=== PATIENT | female | born 1950 | race Caucasian/White ===

== ENCOUNTER 2018-10-17 14:16 | Inpatient (IN) ==
--- NOTE | 2018-10-17 14:45 | Diag Imaging Result Doc PS360 ---
EXAM: CHEST-2 VIEWS 10/17/2018 HISTORY: SOB TECHNIQUE: PA and lateral chest COMMENT: The inspiration is better than on 01/13/2016. There is apparent COPD. The heart size and pulmonary vascularity are within normal limits. There is some prominence of interstitial markings in the lung bases which may indicate a very mild degree of interstitial pulmonary edema. IMPRESSION: COPD. Questionable pulmonary edema. Electronically signed by Varghese Bermeo 10/17/2018 2:43 PM
[2018-10-17 14:51] LABS: BASO# 0.01 X1000 (0.0-0.2); BASO% 0.1 % (0.0-0.8); EOS# 0.02 X1000 (0.0-0.7); EOS% 0.1 % (0.0-10.0); HEMATOCRIT 43.5 % (37.0-47.0); HEMOGLOBIN 13.4 g/dL (12.0-16.0); IMM GRAN# 0.03 X1000 (0.0-0.04); IMM GRAN% 0.2 % (0.0-0.5); LYMPH# 0.56 X1000 (1.2-3.4); LYMPH% 3.5 % (20.5-51.1); MCH 30.7 PG (27-31); MCHC 30.8 g/dL (33-37); MCV 99.8 FL (81-99); MONO% 6.3 % (1.7-9.3); MPV 10.3 FL (7.4-10.4); NEUT# 14.25 X1000 (1.4-6.5); NEUT% 89.8 % (42.2-75.2); PLT 320 X1000 (130-400); RBC 4.36 XMIL (4.2-5.4); RDW 13.6 % (11.5-14.5); WBC 15.87 X1000 (4.8-10.8)
[2018-10-17 14:59] LABS: INR 0.87; PROTIME 12.6 Seconds (11.0-16.0)
[2018-10-17 15:00] LABS: PTT 26.7 Seconds (22.3-41.8)
[2018-10-17 15:26] LABS: AGAP 13; ALB/GLOB RATIO 1.7; ALBUMIN 3.5 g/dL (3.5-5.0); ALKALINE PHOSPHATASE 83 U/L (32-104); BUN 20 mg/dL (8-22); CALCIUM 9.5 mg/dL (8.8-10.2); CHLORIDE 103 mmol/L (98-107); CK PROFILE 43 U/L (24-173); COSMO 289; CREATININE 0.6 mg/dL (0.5-0.9); ESTIMATED GFR > 60; GLUCOSE 91 mg/dL (70-104); GOT 14 U/L (10-30); GPT 8 U/L (10-36); POTASSIUM 4.2 mmol/L (3.5-5.1); SODIUM 144 mmol/L (136-145); TCO2 28 mmol/L (25-35); TOTAL BILIRUBIN 0.84 mg/dL (0.20-1.00); TOTAL PROTEIN 5.6 g/dL (6.3-8.3)
[2018-10-17 17:37] LABS: ALLEN TEST NO; BE 5.5 mmoll (-3.0-3.0); BLOOD TYPE ARTERIAL; HCO3-(ACT) 29.1 mmoll (20.0-26.0); METHB 0.7 % (0.0-1.5); O2(CT) 17.6 mL/dL (15.0-23.0); O2HB 93.1 % (95.0-99.0); PO2(98.6) 67 mmHg (60-100); SAMPLE BLOOD; SAO2 95.3 % (95.0-100.0); THB 13.4 g/dL (11.5-17.4)
[2018-10-17 17:38] LABS: MODALITY CANNULA; PCO2(98.6) 51 mmHg (35-45)
[2018-10-17] MEDS ORDERED: DUONEB (A & A) INH ONE (17:46)
--- NOTE | 2018-10-17 20:11 | Diag Imaging Result Doc PS360 ---
EXAM: CT ANGIOGRAM THORAX 10/17/2018 HISTORY: dyspnea TECHNIQUE: This exam was performed using automated exposure control, adjustment of mA or kV according to patient size, and/or use of iterative reconstruction technique. COMMENT: The current examination is compared with the previous study of 02/16/2018. There is no evidence of filling defect in the pulmonary arteries. There is no evidence of aortic dissection or aneurysm. There are no abnormal fluid collections. There are bronchi in the right lower lobe which are partially opacified similar in appearance to the previous examination. There is no evidence of acute pulmonary parenchymal disease and compared to the previous examination otherwise there has been no significant change. IMPRESSION: COPD. Stable CT of the chest. Electronically signed by Varghese Bermeo 10/17/2018 8:09 PM
--- NOTE | 2018-10-17 21:22 | HISTORY AND PHYSICAL ---
CHIEF COMPLAINT: Shortness of breath. PRESENT ILLNESS: The patient is a 68-year-old white female with COPD who has been short of breath for the last 3 to 4 weeks. She has seen her regular doctor Dr. Cortés who had her on antibiotics and steroids as well as breathing treatments at home with [facility] and she just does not feeling better and she feels like she is getting worse. Came to the emergency room still short of breath. Her white count was 15,870. Her blood gas showed a pH of 7.40, pCO2 of 51, PO2 of 67 on 28% FiO2 so without oxygen probably hypoxic with this. She states that a couple months ago she started getting more short of breath and it hit her fairly suddenly and then even worse 3 to 4 weeks ago and had not had anything like this before. She says nothing seems to help. She has had home oxygen for the last 3 weeks. The patient has also been under considerable stress. She has had several family members in the last little while. She has been on antidepressants and on Xanax. PAST MEDICAL HISTORY: Includes COPD, she has had a total hysterectomy, she has had osteoarthritis, hypertension, hyperlipidemia. FAMILY HISTORY: Includes vascular disease and lung cancer. SOCIAL HISTORY: The patient smoked from age 15 until about 16 years ago and smoked 2 to 3 packs a day. 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 She has concerns about lung cancer and concerns about heart disease. She does seem uncomfortable even though blood gases are not that bad. She says she just cannot get her breath. She denies being lightheaded. REVIEW OF SYSTEMS: Neurological: Denies headaches, seizures, visual problems, hearing problems. Pulmonary: She has been very short of breath and did have a cough and that has gotten better but her breathing just has not gotten any better. Cardiovascular: Denies chest pain, heart palpitations, PND, orthopnea. GI: Denies hematochezia, hematemesis, melena, constipation, diarrhea. : Denies any difficulty with urination. Endocrine: Has no thyroid disease or diabetes by history. No pituitary problems. Psychiatric: Patient has had some anxiety and depression is on treatment for that. HOME MEDICATION: List includes albuterol and Atrovent duo nebs at home, Xanax 0.5 mg p.o. b.i.d., Celexa 20 mg daily, Meloxicam 7.5 mg daily, Singulair 10 mg daily, she has some nitroglycerin order though she tells me she has not had chest pain, pravastatin 40 mg at bedtime, prednisone she has been on tapering dose here recently. PHYSICAL EXAMINATION: The patient appears to be somewhat anxious and short of breath. She is a little tachycardic and tachypneic. VITAL SIGNS: Show blood pressure 109/62, respirations 20, pulse 113 later came down to 75, temperature 97.8 degrees Fahrenheit . HEENT: She is normocephalic. EOMS intact. PERRLA. Throat clear. Fundi not seen well due to constriction of pupils. NECK: Supple without thyromegaly, lymphadenopathy, carotid bruits. LUNGS: Have a few rales in the bases bilaterally but no wheezing at this time. HEART: Regular rate and rhythm to sinus tachycardia. ABDOMEN: Soft. Active bowel sounds. No organomegaly or tenderness. BREAST: Deferred. RECTAL: Deferred. PELVIC: Deferred . INTEGUMENT: Shows no lesions consistent with melanoma other skin cancers, lymph nodes are nonpalpable in the cervical, supraclavicular areas. NEUROLOGICAL: Intact grossly. Reflexes 1+ all. EKG has been ordered. Because of her concern about possibly pulmonary embolism or cancer that we cannot see on chest x-ray will do a CT angiogram of her chest. Her D-dimer was very low and based on that one would hope that she does not have a pulmonary embolism. She has had no swelling in her legs. She did on her chest x-ray which was essentially clear had maybe a little suggestion of pulmonary edema according to the radiologist, because of that I will go ahead and do an echocardiogram as well. Her initial troponin level was normal. EKG is pending. I will start her on some IV Solu-Medrol and breathing treatments. ADMITTING DIAGNOSIS: 1. Unremitting shortness of breath. 2. Chronic obstructive pulmonary disease exacerbation. 3. Questionable pulmonary edema on chest x-ray. cc: Mayank Telles Jr, MD
--- NOTE | 2018-10-18 01:42 | PROVIDER DOCUMENTATION ---
This chart was entered by Elaine Whitley Scribe, acting as scribe for J Luis Ramon MD. HPI-Respiratory General - General Chief Complaint: Shortness of Breath Stated Complaint: CANT BREATHE Time Seen by Provider: 10/17/18 16:29 Source: patient Allergies/Adverse Reactions: Patient Allergies Allergy/AdvReac Type Severity Reaction Status Date / Time No Known Allergies Allergy Verified 01/13/16 14:00 Home Medications: Home Medication List Medication Instructions Recorded Confirmed Last Taken Type Alprazolam [Xanax] 0.5 mg PO BID PRN PRN 01/13/16 10/17/18 01/13/16 History Citalopram [Celexa] 20 mg PO DAILY 01/13/16 10/17/18 01/12/16 History PRAVAstatin [Pravachol] 40 mg PO QHS 01/13/16 10/17/18 01/12/16 History Albuterol 2.5MG/Ipratrop 0.5MG 3 ml INH Q4H PRN PRN #0 neb 01/16/16 10/17/18 Unknown Rx [Duoneb (A & A)] Benzonatate 200 mg PO TID 10/17/18 10/17/18 Unknown History Cyclobenzaprine [Flexeril] 10 mg PO QHS 10/17/18 10/17/18 Unknown History Losartan [Cozaar] 50 mg PO DAILY 10/17/18 10/17/18 Unknown History Meloxicam [Mobic] 15 mg PO DAILY 10/17/18 10/17/18 Unknown History Mometasone/Formoterol [Dulera 100 2 puff INH BID 10/17/18 10/17/18 Unknown History Mcg/5 Mcg Inhaler] Prednisone 10 mg PO DAILY 10/17/18 10/17/18 Unknown History Tiotropium Br/Olodaterol HCl 4 gm IH 10/17/18 Unknown History [Stiolto Respimat Inhal Samaria] - History of Present Illness-Resp Nature of Presenting Problem: 68 y/o female presents to the ED with increasing SOB worsening with walking in the house and states at times she feels as if she might pass out due to this SOB. The patient has a history of COPD and is on home O2 , nebulizer treatment , and finished a 10 day course of Levaquin. The patient has not yet seen [employer]. Onset/Duration: reports: other (one month) Timing: reports: still present Context: reports: other (COPD) Episode Frequency: chronic episodes Current Respiratory Medication Therapy: Initiated see nurses note Modifying Factors: worse with: exertion Associated Symptoms: reports: shortness of breath, short of breath. denies: fever/chills, sweaty, wheezing Similar Symptoms Previously?: Yes Recently seen or treated by another doctor?: No Review of Systems - Adult - REVIEW OF SYSTEMS - ADULT Constitutional: denies: chills, fever, night sweats Eyes: reports: no symptoms reported Ears, Nose, Mouth & Throat: reports: no symptoms reported Cardiovascular: reports: no symptoms reported Respiratory: reports: shortness of breath. denies: hemoptysis, wheezing Gastrointestinal: denies: diarrhea, nausea, vomiting Genitourinary: reports: no symptoms reported Musculoskeletal: reports: no symptoms reported Integumentary: reports: no symptoms reported Neurological: reports: no symptoms reported Psychiatric: reports: no symptoms reported Endocrine: reports: no symptoms reported Hematologic/Lymphatic: reports: no symptoms reported Allergic/Immunologic: reports: no symptoms reported All Other Systems: Reviewed and Negative Past History - Adult - PAST MEDICAL HISTORY-ADULT Review of Records: reports: Old Records Reviewed, Nursing Assessment Review, Medications Reviewed Cardiovascular: reports: hyperlipidemia Respiratory: reports: COPD Psychiatric: reports: depression - PRIOR SURGERIES/PROCEDURES Surgical/Procedure History: reports: hysterectomy, breast (lumpectomy) - IMMUNIZATION STATUS Childhood Immunizations: See Nurse Assessment Flu Vaccine: See Nurse Assessment - SOCIAL HISTORY Smoking: other (former smoker) Substance Use: denies Alcohol Use Frequency: never Physical Exam-General - PHYSICAL EXAM-ADULT Initial Vital Signs Reviewed: Yes - CONSTITUTIONAL General Appearance: alert, other (on O2 2 liters) - HEAD, EARS, NOSE, MOUTH & THROAT HENMT: normocephalic/atraumatic, moist mucous membranes - NECK Neck: non-tender, full range of motion, supple - RESPIRATORY Respiratory: other (decreased breath sounds). negative: rhonchi, wheezing - CARDIOVASCULAR Cardiovascular: regular rate, rhythm, no edema - SKIN Integumentary: normal color, warm/dry. negative: diaphoresis - NEUROLOGIC Neurologic: grossly normal - PSYCHIATRIC Psych/Mental Status: oriented x 3 Progress - PLAN OF CARE/RESULTS Progress/Plan/Lab Results: Vital Signs - 8 hr 01/05/19 18:23 Pulse Rate 75 Respiratory Rate 17 O2 Sat by Pulse Oximetry 96 Laboratory Results - last 24 hr 10/17/18 10/17/18 10/17/18 14:35 14:35 14:35 WBC 15.87 H RBC 4.36 Hgb 13.4 Hct 43.5 MCV 99.8 H MCH 30.7 MCHC 30.8 L RDW Std Deviation 13.6 Plt Count 320 MPV 10.3 Immature Gran % (Auto) 0.2 Neut % (Auto) 89.8 H Lymph % (Auto) 3.5 L [place] % (Auto) 6.3 Eos % (Auto) 0.1 Baso % (Auto) 0.1 Immature Gran # (Auto) 0.03 Neut # (Auto) 14.25 H Lymph # (Auto) 0.56 L [place] # (Auto) 1.00 H Eos # (Auto) 0.02 Baso # (Auto) 0.01 PT INR PTT (Actin FS) D-Dimer, Quantitative Specimen Type Sample Site pH pCO2 pO2 HCO3 Base Excess Oxyhemoglobin ABG O2 Sat (Calculated) ABG O2 Saturation ABG Carboxyhemoglobin ABG Methemoglobin Moo Test A-a O2 Difference Total Hemoglobin Lactate Liter Flow Blood Gas Modality FiO2 % Sodium 144 Potassium 4.2 Chloride 103 Carbon Dioxide 28 Anion Gap 13 BUN 20 Creatinine 0.6 Estimated GFR/1.73 m2 > 60 BUN/Creatinine Ratio 33 Glucose 91 Calculated Osmolality 289 Calcium 9.5 Total Bilirubin 0.84 AST 14 ALT 8 L Alkaline Phosphatase 83 Creatine Kinase 43 Troponin T Gex-S-Gkxfelwzffh Pept 97 Total Protein 5.6 L Albumin 3.5 Globulin 2.1 Albumin/Globulin Ratio 1.7 10/17/18 10/17/18 10/17/18 14:35 14:35 14:35 WBC RBC Hgb Hct MCV MCH MCHC RDW Std Deviation Plt Count MPV Immature Gran % (Auto) Neut % (Auto) Lymph % (Auto) [place] % (Auto) Eos % (Auto) Baso % (Auto) Immature Gran # (Auto) Neut # (Auto) Lymph # (Auto) [place] # (Auto) Eos # (Auto) Baso # (Auto) PT 12.6 INR 0.87 PTT (Actin FS) 26.7 D-Dimer, Quantitative < 0.27 Specimen Type Sample Site pH pCO2 pO2 HCO3 Base Excess Oxyhemoglobin ABG O2 Sat (Calculated) ABG O2 Saturation ABG Carboxyhemoglobin ABG Methemoglobin Moo Test A-a O2 Difference Total Hemoglobin Lactate Liter Flow Blood Gas Modality FiO2 % Sodium Potassium Chloride Carbon Dioxide Anion Gap BUN Creatinine Estimated GFR/1.73 m2 BUN/Creatinine Ratio Glucose Calculated Osmolality Calcium Total Bilirubin AST ALT Alkaline Phosphatase Creatine Kinase Troponin T < 0.010 Vtm-U-Frmujipxtyr Pept Total Protein Albumin Globulin Albumin/Globulin Ratio 10/17/18 17:25 WBC RBC Hgb Hct MCV MCH MCHC RDW Std Deviation Plt Count MPV Immature Gran % (Auto) Neut % (Auto) Lymph % (Auto) [place] % (Auto) Eos % (Auto) Baso % (Auto) Immature Gran # (Auto) Neut # (Auto) Lymph # (Auto) [place] # (Auto) Eos # (Auto) Baso # (Auto) PT INR PTT (Actin FS) D-Dimer, Quantitative Specimen Type ARTERIAL Sample Site R BRACHIAL pH 7.40 pCO2 51 H* pO2 67 HCO3 29.1 H Base Excess 5.5 H Oxyhemoglobin 93.1 L ABG O2 Sat (Calculated) 17.6 ABG O2 Saturation 95.3 ABG Carboxyhemoglobin 1.60 ABG Methemoglobin 0.7 Moo Test NO A-a O2 Difference 69.0 Total Hemoglobin 13.4 Lactate 1.00 Liter Flow 2.0 Blood Gas Modality CANNULA FiO2 % 28.0 Sodium Potassium Chloride Carbon Dioxide Anion Gap BUN Creatinine Estimated GFR/1.73 m2 BUN/Creatinine Ratio Glucose Calculated Osmolality Calcium Total Bilirubin AST ALT Alkaline Phosphatase Creatine Kinase Troponin T Acp-Y-Zdzhvkwhwjv Pept Total Protein Albumin Globulin Albumin/Globulin Ratio Orders Category Date Time Status Admit - [facility] Routine AdmDCTranf 10/17/18 18:10 Active Call Admitting on Arrival AT ADMISSION Care 10/17/18 18:10 Active Cardiac Monitoring DIRECTED Care 10/17/18 14:28 Active Oxygen Therapy- ED Nursing DIRECTED Care 10/17/18 14:28 Active Saline Loc NOW Care 10/17/18 14:28 Active Vital Signs Order ROUTINE Care 10/17/18 18:10 Active Z-Document. for Tele Applied ORDERED Care 10/17/18 18:11 Active CHEST-2 VIEWS [RAD] Stat Exams 10/17/18 14:[address] ANGIOGRAM THORAX [CT] Stat Exams 10/17/18 18:37 Completed ABG [RESP] Routine Lab 10/17/18 17:25 Completed CBC WITH ELECTRONIC DIFF [HEME] Stat Lab 10/17/18 14:35 Completed CK PROFILE [SP CHEM] Stat Lab 10/17/18 14:35 Completed COMPREHENSIVE METABOLIC PANEL [CHEM] Stat Lab 10/17/18 14:35 Completed D-DIMER [COAG] Stat Lab 10/17/18 14:35 Completed PRO B-NATRIURETIC PEPTIDE Stat Lab 10/17/18 14:35 Completed PROTIME WITH INR [COAG] Stat Lab 10/17/18 14:35 Completed PTT [COAG] Stat Lab 10/17/18 14:35 Completed TROPONIN T Stat Lab 10/17/18 14:35 Completed Albuterol 2.5MG/Ipratrop 0.5MG [Duoneb (A & A)] Med 10/17/18 17:46 Discontinued 3 ml INH NOW ONE Aerosol Treatments Routine Oth 10/17/18 17:46 Completed Aerosol Treatments Stat Oth 10/17/18 17:46 Completed CP/SOB/Palp >45 yrs of Age Stat Oth 10/17/18 14:28 Ordered Oxygen Device Routine Oth 10/17/18 18:11 Completed Telemetry [OM.EQ] Routine Oth 10/17/18 18:10 Active EKG [EKG] Stat Ther 10/17/18 14:28 Ordered Transfer/Admit Order [TRANSFER] Routine Transfer 10/17/18 18:11 Ordered Result Diagrams: 10/17/18 14:35 10/17/18 14:35 - EKG 1 Time of EKG reading by physician:: 14:32 EKG Read and Signed by:: [place] Rate: 111 Rhythm: sinus tachycardia with occasional premature venticular complexes [place]: normal ST Wave: normal - XRAY 1 XRAY Study: Chest Impression: Abnormal (EXAM: CHEST-2 VIEWS 10/17/2018 HISTORY: SOB TECHNIQUE: PA and lateral chest COMMENT: The inspiration is better than on 01/13/2016. There is apparent COPD. The heart size and pulmonary vascularity are within normal limits. There is some prominence of interstitial markings in the lung bases which may indicate a very mild degree of interstitial pulmonary edema. IMPRESSION: COPD. Questionable pulmonary edema. Electronically signed by Varghese Bermeo 10/17/2018 2:43 PM) - CONSULTS/PCP/HOSPITALIST Notification #1 *Consult/PCP/Hospitalist*: Dr. Telles for Dr. [place] Cortés Time Discussed: 17:49 Reason/Comments: elevated white count, worsening SOB Consult Disposition: Admit Departure - Departure Date of Disposition Decision: 10/17/18 Time of Disposition Decision: 18:13 DIAGNOSIS: Acute and chronic respiratory failure Qualifiers: Respiratory failure complication: hypercapnia Qualified Code(s): J96.22 - Acute and chronic respiratory failure with hypercapnia Disposition: HOME 01 Certified Medical Emergency: Emergent Condition: Good - Critical Care Note This patient required my direct & personal management of CC.: No Attestation - Physician/ KATERINE Attestation Patient care was provided by Advanced Practice Provider:: No The physician spent face to face time with patient:: Yes Advanced Practice Provider documentation review:: Supervising physician onsite and consulted in the evaluation and care of this patient. The physician did have a face to face encounter with the patient. This chart was documented by the indicated scribe, (Elaine Whitley Scribe) and accurately reflects the services I performed and decisions made by me, J Luis Ramon MD, as attested by the provider's signature.
[2018-10-18] MEDS: DUONEB (A & A) INH SCH ×4 (04:00→22:30)
[2018-10-18] MEDS ORDERED: TYLENOL PO PRN (04:07)
[2018-10-18] MEDS ORDERED: SOLU-MEDROL IV ONE (04:07)
--- NOTE | 2018-10-18 07:52 | Diag Imaging Result Doc PS360 ---
EXAM: CHEST-1 VIEW 10/18/2018 HISTORY: SEPSIS PROTOCOL TECHNIQUE: AP upright portable at 0745 COMMENT: There may be a hiatal hernia. Considering differences in technique and inspiration there has been no significant change in the appearance the chest since 10/17/2018. IMPRESSION: Stable chest. Electronically signed by Varghese Bermeo 10/18/2018 7:50 AM
--- NOTE | 2018-10-18 12:31 | PROGRESS NOTE ---
DATE: 10/18/2018 SUBJECTIVE: The patient says she feels about the same. She is not breathing real fast, respirations around [address] scan of the chest just showed COPD and did not show any pulmonary emboli or masses. OBJECTIVE: Vital signs: Blood pressure 139/99, respirations 18, pulse 96, temp 97.9 degrees Fahrenheit, oxygen saturation 96% on 2 L. The patient is hungry. We will go ahead and feed her. HEENT: She is normocephalic. EOMS intact. PERRLA. Throat clear. Lungs: Wheezes in the bases bilaterally. Heart: Regular rate and rhythm without murmurs, gallops, friction rubs. Abdomen: Soft. Active bowel sounds. No organomegaly or tenderness. Neurological: Intact grossly. The patient does appear a little anxious. ASSESSMENT: COPD exacerbation. PLAN: We will continue IV steroids. We will get her back on her other inhalers. Echocardiogram has been ordered. On initial chest x-ray, there was some question about some pulmonary edema. cc: Mayank Telles Jr, MD
[2018-10-18] MEDS: LOVENOX SUBQ SCH (13:29)
[2018-10-18] MEDS: COZAAR PO SCH (13:46)
[2018-10-18] MEDS: CELEXA PO SCH (13:46)
[2018-10-18] MEDS: XANAX PO SCH ×2 (13:50→21:33)
[2018-10-18] MEDS: SOLU-MEDROL IV SCH ×2 (13:51→21:33)
[2018-10-18] MEDS: TESSALON PO SCH ×3 (13:51→21:33)
[2018-10-18] MEDS: DULERA 100 MCG/5 MCG INHALER INH SCH ×2 (15:44→19:30)
[2018-10-18 20:30] LABS: HEMATOCRIT 42.4 % (37.0-47.0); HEMOGLOBIN 12.7 g/dL (12.0-16.0); IMM GRAN# 0.03 X1000 (0.0-0.04); IMM GRAN% 0.3 % (0.0-0.5); LYMPH# 0.35 X1000 (1.2-3.4); LYMPH% 3.3 % (20.5-51.1); MCH 30.2 PG (27-31); MCV 100.7 FL (81-99); MONO# 0.16 X1000 (0.11-0.59); MONO% 1.5 % (1.7-9.3); MPV 10.1 FL (7.4-10.4); NEUT# 9.96 X1000 (1.4-6.5); NEUT% 94.9 % (42.2-75.2); PLT 293 X1000 (130-400); RBC 4.21 XMIL (4.2-5.4); RDW 13.6 % (11.5-14.5)
[2018-10-18 20:35] LABS: INR 0.87; PROTIME 12.5 Seconds (11.0-16.0)
[2018-10-18 20:36] LABS: PTT 25.3 Seconds (22.3-41.8)
[2018-10-18 21:02] LABS: ALB/GLOB RATIO 1.5; ALBUMIN 3.4 g/dL (3.5-5.0); POTASSIUM 4.5 mmol/L (3.5-5.1); TOTAL BILIRUBIN 0.62 mg/dL (0.20-1.00); TOTAL PROTEIN 5.6 g/dL (6.3-8.3)
[2018-10-18 21:12] LABS: BANDS 1 % (0-1); LYMPHS 4 % (21-51); MONO 1 % (1-9); SEGS 94 % (42-75)
[2018-10-18] MEDS: PRAVACHOL PO SCH (21:33)
[2018-10-19] MEDS: DUONEB (A & A) INH SCH ×4 (03:15→21:20)
[2018-10-19] MEDS: SOLU-MEDROL IV SCH ×3 (06:19→20:57)
--- NOTE | 2018-10-19 07:27 | EKG Report ---
Test Performed on : 10/17/2018 2:32:04 PM Test Reason : SOB Blood Pressure : / mmHG Vent. Rate : 111 BPM Atrial Rate : 111 BPM P-R Int : 118 ms QRS Dur : 082 ms QT Int : 326 ms P-R-T Axes : 083 037 073 degrees QTc Int : 443 ms Sinus tachycardia. with occasional premature ventricular complexes. Otherwise normal ECG When compared with ECG of 13-JAN-2016 13:33, premature ventricular complexes. are now present T wave inversion no longer evident in Inferior leads Unconfirmed Result
[2018-10-19 07:28] LABS: HEMOGLOBIN 13.3 g/dL (12.0-16.0); IMM GRAN# 0.03 X1000 (0.0-0.04); IMM GRAN% 0.3 % (0.0-0.5); LYMPH# 0.47 X1000 (1.2-3.4); LYMPH% 5.1 % (20.5-51.1); MCH 30.5 PG (27-31); MCHC 30.2 g/dL (33-37); MCV 100.9 FL (81-99); MONO# 0.33 X1000 (0.11-0.59); MONO% 3.6 % (1.7-9.3); MPV 10.4 FL (7.4-10.4); NEUT# 8.34 X1000 (1.4-6.5); PLT 281 X1000 (130-400); RBC 4.36 XMIL (4.2-5.4); RDW 13.6 % (11.5-14.5); WBC 9.17 X1000 (4.8-10.8)
[2018-10-19 07:35] LABS: LYMPHS 6 % (21-51); MONO 6 % (1-9); SEGS 88 % (42-75)
[2018-10-19 08:00] LABS: AGAP 11; BUN 17 mg/dL (8-22); CALCIUM 9.4 mg/dL (8.8-10.2); CHLORIDE 103 mmol/L (98-107); COSMO 291; CREATININE 0.7 mg/dL (0.5-0.9); ESTIMATED GFR > 60; GLUCOSE 152 mg/dL (70-104); POTASSIUM 4.2 mmol/L (3.5-5.1); SODIUM 144 mmol/L (136-145); TCO2 30 mmol/L (25-35)
[2018-10-19] MEDS: CELEXA PO SCH (09:45)
[2018-10-19] MEDS: XANAX PO SCH ×2 (09:45→20:58)
[2018-10-19] MEDS: TESSALON PO SCH ×3 (09:45→20:58)
[2018-10-19] MEDS: LOVENOX SUBQ SCH (09:45)
[2018-10-19] MEDS: COZAAR PO SCH (09:45)
[2018-10-19] MEDS ORDERED: BENADRYL PO PRN (10:40)
[2018-10-19] MEDS: DULERA 100 MCG/5 MCG INHALER INH SCH ×2 (11:22→21:20)
--- NOTE | 2018-10-19 14:02 | ECHO REPORT ---
ORDER DATE: 10/18/2018 PROCEDURE: Echocardiogram. MEASUREMENTS: Left ventricular end-diastolic diameter 4.6. End-systolic diameter 3.3, septal thickness 0.8, posterior wall thickness 0.7, aortic root 3.3, left atrium 3.3. SUMMARY: 1. Technically difficult study due to limited acoustic window quality. 2. Aortic valve without evidence of structural abnormality. Peak gradient across that aortic valve is 11 mmHg. Mitral and tricuspid valves are without evidence of structural abnormality, while pulmonic valve is not well demonstrated. There is trace mitral regurgitation and very mild tricuspid regurgitation. The aortic root is normal in size. 3. Normal left ventricular dimensions demonstrated. Estimated left ventricular ejection fraction appears to be at least 60%. No regional wall abnormalities can be appreciated. Doppler suggests grade 1 left ventricular diastolic dysfunction. Left atrium, right atrium, and right ventricle are normal size with normal right ventricular systolic function. 4. No pericardial effusion. 5. Appearance of inferior vena cava suggests normal central venous pressure. CONCLUSIONS: 1. Technically difficult study. 2. Very mild tricuspid regurgitation. 3. Normal left ventricular systolic function without wall motion abnormality evident. 4. Grade 1 left ventricular diastolic dysfunction suggested. cc: MD Mayank White Jr, MD
--- NOTE | 2018-10-19 18:20 | PROGRESS NOTE ---
DATE: 10/19/2018 VITAL SIGNS: Stable with temperature 97.7 degrees, heart rate 109, respirations 16, blood pressure 120/61, O2 saturation on 2 liters nasal oxygen 95%. SUBJECTIVE: The patient is a 68-year-old white female with COPD who had worsening and presented to the emergency room. Chest x-ray is stable with possible hiatal hernia. Chest CT showed no significant change since study of 02/16/2018. Impression was COPD. Echocardiogram showed mild tricuspid regurgitation and normal left ventricular systolic function. There was mild left ventricular diastolic dysfunction. The patient states that she has improved a little, but when she gets up to go to the bathroom, she becomes very winded and tachypneic. She is receiving intravenous steroids with Solu-Medrol and aerosol treatments with albuterol and Atrovent. White blood count has decreased from 16,000 to 9000 over the past couple of days. Hematocrit is stable at 44. PLAN: Add budesonide inhalation b.i.d., do pulmonary function studies, and consult Dr. Stuart for additional help in management. cc: MD Mayank De La Paz Jr, MD
[2018-10-19] MEDS: PRAVACHOL PO SCH (20:58)
[2018-10-19] MEDS: PULMICORT INH SCH (21:20)
[2018-10-20] MEDS: DUONEB (A & A) INH SCH ×4 (03:40→22:00)
[2018-10-20] MEDS: SOLU-MEDROL IV SCH (06:07)
[2018-10-20 07:37] LABS: HEMATOCRIT 43.6 % (37.0-47.0); HEMOGLOBIN 13.1 g/dL (12.0-16.0); IMM GRAN# 0.04 X1000 (0.0-0.04); IMM GRAN% 0.2 % (0.0-0.5); LYMPH# 0.47 X1000 (1.2-3.4); LYMPH% 2.5 % (20.5-51.1); MCH 30.2 PG (27-31); MCV 100.5 FL (81-99); MONO# 0.79 X1000 (0.11-0.59); MONO% 4.1 % (1.7-9.3); MPV 10.2 FL (7.4-10.4); NEUT# 17.85 X1000 (1.4-6.5); NEUT% 93.2 % (42.2-75.2); PLT 318 X1000 (130-400); RBC 4.34 XMIL (4.2-5.4); RDW 13.7 % (11.5-14.5); WBC 19.15 X1000 (4.8-10.8)
[2018-10-20 08:00] LABS: BANDS 2 % (0-1); LYMPHS 2 % (21-51); MONO 2 % (1-9); SEGS 94 % (42-75)
[2018-10-20 08:07] LABS: AGAP 9; BUN 20 mg/dL (8-22); CALCIUM 9.8 mg/dL (8.8-10.2); CHLORIDE 101 mmol/L (98-107); COSMO 284; CREATININE 0.6 mg/dL (0.5-0.9); ESTIMATED GFR > 60; GLUCOSE 139 mg/dL (70-104); POTASSIUM 4.4 mmol/L (3.5-5.1); SODIUM 140 mmol/L (136-145); TCO2 30 mmol/L (25-35)
--- NOTE | 2018-10-20 08:18 | PROGRESS NOTE ---
DATE: 10/20/2018 VITAL SIGNS: Temperature 98.1 degrees, heart rate 100, respirations 16, blood pressure 113/61, O2 saturation on 2 liters nasal oxygen of 96%. SUBJECTIVE: The patient feels better. She has been afebrile. OBJECTIVE: White blood count is increased, probably related to IV steroids, at 19,000. Hematocrit is 43.6. Plasma lactate is 2.2. Chest is clear. Abdomen is soft. PLAN: Pulmonary function studies and pulmonary consult. cc: MD Mayank De La Paz Jr, MD
[2018-10-20] MEDS: PULMICORT INH SCH ×2 (09:50→22:00)
[2018-10-20] MEDS: DULERA 100 MCG/5 MCG INHALER INH SCH ×2 (09:51→20:00)
[2018-10-20] MEDS ORDERED: DUONEB (A & A) ONE (09:58)
[2018-10-20] MEDS: CELEXA PO SCH (10:12)
[2018-10-20] MEDS: TESSALON PO SCH ×3 (10:12→20:48)
[2018-10-20] MEDS: COZAAR PO SCH (10:13)
[2018-10-20] MEDS: LOVENOX SUBQ SCH (10:13)
[2018-10-20] MEDS: XANAX PO SCH ×2 (10:13→20:48)
[2018-10-20] MEDS: PREDNISONE PO SCH ×2 (10:17→20:48)
--- NOTE | 2018-10-20 13:52 | Diag Imaging Result Doc PS360 ---
EXAM: SINUSES 10/20/2018 HISTORY: sinus drainage TECHNIQUE: Sinus series 3 views COMMENT: The paranasal sinuses appear to be clear. There is no evidence of acute bony disease. IMPRESSION: No acute disease. Electronically signed by Varghese Bermeo 10/20/2018 1:50 PM
--- NOTE | 2018-10-20 13:59 | PULMONOLOGY CONSULTATION ---
DATE: 10/20/2018 REQUESTING PHYSICIAN: Dr. West Cortés. REASON FOR CONSULTATION: COPD with dyspnea. HISTORY OF PRESENT ILLNESS: Ms. Paz is a 68-year-old white female, with a 60 pack year history for tobacco, long history of nonsmoking,who was diagnosed with COPD approximately 16 years ago by her report. She reports she was on oxygen transiently at that time but came off oxygen but she is not clear about the time frame. The patient was placed on intermittent oxygen and nocturnal oxygen approximately 4 years ago. Approximately 5 years ago she was evaluated by Dr. John Cartwright in [place] and has used nebulizers since that time. She has not had a recent pulmonary followup. 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 Approximately 4 weeks ago, she developed an upper respiratory infection associated with cough, sputum production, and some sinus drainage. She reports her oxygen requirements significantly increased after that time, and she has not yet returned to her baseline. The patient presented to the emergency room on 10/17/2018 with shortness of breath, and she underwent a CT scan of the thorax which was compared to one performed 02/16/2018. She has some increased mucus in the airways, evidence of emphysema, but no evidence of pulmonary emboli. The patient did undergo pulmonary function studies earlier today which revealed severe obstruction with an FEV 1 of 0.57 L or 24% of predicted. She has had marginal improvement during this hospitalization. PAST MEDICAL HISTORY: Problem List: 1. COPD with hypoxemic respiratory failure, as per above. 2. Hypertension. 3. Dyslipidemia. 4. Osteoarthritis. 5. Status post hysterectomy. SOCIAL HISTORY: Prior tobacco use per above. Occasional alcohol use. 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 FAMILY HISTORY: Positive for breast cancer, lung cancer, and vascular disease. REVIEW OF SYSTEMS: Primarily notable for increased fatigue, increased shortness of breath, cough. PHYSICAL EXAMINATION: General: Examination reveals a well-developed, well-nourished, white female, resting comfortably and in no distress. Vital Signs: Blood pressure 129/62, heart rate 114, respiratory rate 20, oxygen saturation 96% on 2 L per nasal cannula. HEENT: Pupils are equal and reactive. Oropharynx is clear. Neck: Supple. Chest: Reveals occasional rhonchi bilaterally with faint wheezing on forced exhalation. Cardiac Exam: S1-S2 increased rate. Abdomen: Soft. Extremities: Without edema. LABORATORIES: Echocardiogram was performed yesterday which revealed normal LV function. No evidence of significant pulmonary hypertension. No evidence of significant cardiac dysfunction. Pulmonary function studies today as per above. Arterial blood gas reveals a pH of 7.40, pCO2 of 51, PO2 of 67 on 2 L per nasal cannula. IMPRESSION: 68-year-old with chronic hypercapnic respiratory failure, [id number] hypoxemic respiratory failure, chronic obstructive pulmonary disease exacerbation, increased dyspnea. The patient does have occasional rhonchi on examination. She has received broad-spectrum antibiotic prior to this admission (Levaquin). She continues to have a rattle. She did have some sinus issues early in the course of her illness. RECOMMENDATIONS: 1. Check sinus series to evaluate for sinusitis. This would require a longer course of antibiotics. 2. Staph coverage. We will initiate doxycycline, 1 tablet twice a day. 3. Continue steroids as you are doing and wean as tolerated. 4. Add an anticholinergic medication to her regimen. 5. Anticipate pulmonary rehabilitation after she has improved from current exacerbation. cc: MD Mayank Ricci Jr, MD
[2018-10-20] MEDS: DOXYCYCLINE PO SCH ×2 (14:35→20:48)
[2018-10-20] MEDS: SPIRIVA INH SCH (15:32)
[2018-10-20] MEDS: PRAVACHOL PO SCH (20:48)
[2018-10-21] MEDS: DUONEB (A & A) INH SCH ×3 (02:30→15:14)
[2018-10-21 08:04] LABS: EOS# 0.07 X1000 (0.0-0.7); EOS% 0.4 % (0.0-10.0); HEMATOCRIT 43.8 % (37.0-47.0); HEMOGLOBIN 13.2 g/dL (12.0-16.0); IMM GRAN# 0.05 X1000 (0.0-0.04); IMM GRAN% 0.3 % (0.0-0.5); LYMPH% 2.3 % (20.5-51.1); MCH 30.7 PG (27-31); MCHC 30.1 g/dL (33-37); MCV 101.9 FL (81-99); MONO# 0.98 X1000 (0.11-0.59); MONO% 5.6 % (1.7-9.3); MPV 10.1 FL (7.4-10.4); NEUT# 15.89 X1000 (1.4-6.5); NEUT% 91.4 % (42.2-75.2); PLT 305 X1000 (130-400); RDW 13.7 % (11.5-14.5); WBC 17.39 X1000 (4.8-10.8)
[2018-10-21 08:14] LABS: AGAP 8; BUN 22 mg/dL (8-22); CALCIUM 10.1 mg/dL (8.8-10.2); CHLORIDE 102 mmol/L (98-107); COSMO 288; CREATININE 0.6 mg/dL (0.5-0.9); ESTIMATED GFR > 60; GLUCOSE 130 mg/dL (70-104); POTASSIUM 5.2 mmol/L (3.5-5.1); SODIUM 142 mmol/L (136-145); TCO2 32 mmol/L (25-35)
[2018-10-21] MEDS: COZAAR PO SCH (08:41)
[2018-10-21] MEDS: PREDNISONE PO SCH (08:41)
[2018-10-21] MEDS: LOVENOX SUBQ SCH (08:41)
[2018-10-21] MEDS: DOXYCYCLINE PO SCH (08:41)
[2018-10-21] MEDS: TESSALON PO SCH ×2 (08:41→14:25)
[2018-10-21] MEDS: CELEXA PO SCH (08:41)
[2018-10-21] MEDS: XANAX PO SCH (08:43)
--- NOTE | 2018-10-21 09:16 | PROGRESS NOTE ---
DATE: 10/21/2018 VITAL SIGNS: Temperature 97.9 degrees, heart rate 101, respirations 20, blood pressure 126/70, O2 saturation on 2 liters nasal oxygen was 99%. LABORATORY: Sodium 142, potassium 5.2, glucose 130, BUN 22, creatinine 0.6, serum lactate 3.3. Hemoglobin 13.2, hematocrit 43.8, white blood count 17,400. OBJECTIVE: The patient has a few scattered rhonchi on auscultation of lungs. There are no rales. She states she is feeling fairly well. Pulmonary function study was done yesterday and showed impairment suggestive of COPD. PLAN: A brief discussion with Dr. Stuart was made this morning and the patient will be discharged this afternoon if she continues to do fairly well. Pulmonary rehab will be planned as an outpatient. cc: MD Mayank De La Paz Jr, MD
[2018-10-21] MEDS: SPIRIVA INH SCH (09:27)
[2018-10-21] MEDS: DULERA 100 MCG/5 MCG INHALER INH SCH (09:27)
[2018-10-21] MEDS: PULMICORT INH SCH (09:27)
[2018-10-21 10:00] LABS: BANDS 2 % (0-1); LYMPHS 2 % (21-51); SEGS 96 % (42-75)
[2018-10-21 16:01] VITALS: BP 133/72
--- NOTE | 2018-10-22 05:45 | DISCHARGE SUMMARY ---
ADMISSION DATE: 10/17/2018 DISCHARGE DATE: 10/21/2018 FINAL DIAGNOSES: Chronic obstructive pulmonary disease exacerbation, mild diastolic dysfunction on echocardiogram, hypertension, hypercholesterolemia, depression. DISCHARGE MEDICATIONS: Usual medication at home plus prednisone 20 mg b.i.d., albuterol-Atrovent nebulizers q.i.d. via nebulizer, Spiriva Respimat 2 puffs once daily, doxycycline 100 mg b.i.d. (20), and Pulmicort 0.5 mg b.i.d. CONSULTATION: Clarence Stuart MD. BRIEF HISTORY: This the first recent [facility] admission for this 68-year-old white female with progressive shortness of breath over several weeks. She presented to the emergency room and after evaluation a decision was made to put her in the hospital for intravenous steroids and nebulizer treatments. INITIAL LABORATORY: Hemoglobin 13.4, hematocrit 43.5, white blood count 15,900. Sodium 144, potassium 4.2, BUN 17, creatinine 0.7, glucose 152, plasma lactate 2.3. Chest x-ray showed COPD and mild pulmonary edema. Chest CT revealed stable chest compared to scan on 02/16/2018. Echocardiogram revealed grade 1 left ventricular diastolic dysfunction and normal left ventricular systolic function. HOSPITAL COURSE: She has improved over several days. Doxycycline was added, p.o. She has remained afebrile. There was an elevation of white blood count to 19,000 on steroids. She continues to have mild wheeze on the right, but it has improved. O2 saturation on 2 L nasal oxygen is 95%. She had been using O2 at home on a routine basis. She will continue p.o. prednisone on a tapering basis. She is to return to the office in 1 week for follow up. Pulmonary rehab will be done at [place] per Dr. Stuart's suggestion. She will return to Dr. Stuart in a couple of months for repeat PFTs. cc: MD Mayank De La Paz Jr, MD
== END 2018-10-21 18:20 | disposition home or self-care (01) | DRG 191 ==
LOC: ED 14:16 → EDIPHOLD 20:47 → 3N 10-18 07:06
PROVIDERS: ADMIT Emergency Medicine; ATTEND Emergency Medicine
CPT/HCPCS: 36415; 70220; 71010; 71020; 71045; 71046; 71275; 77067; 77080; 80048; 80053; 82550; 82805; 83605; 83880; 84484; 85025; 85379; 85610; 85730; 87040; 93005; 93306; 94640; 94761; 99285; A9270; G0202; J1650; J2930; J7506; J7512; Q9967